=== PATIENT | female | born 1990 | race Two or more races ===

== ENCOUNTER 2024-11-09 05:53 | Day surgery (SDC) | payer OTHER ==
[2024-11-02 13:50] VITALS: BP 120/64
[~2024-11-09] VITALS: Ht 172.7 cm; Wt 77.1 kg
[2024-11-09] MEDS ORDERED: POVIDONE-IODINE 118 ML BOTT TOP ONE (10:53)
[2024-11-09] MEDS ORDERED: PROMETHAZINE HCL 50 MG/ML AMPUL IM ONE (16:00)
[2024-11-09] MEDS ORDERED: MORPHINE SULFATE 4 MG/ML VIAL IV PRN (16:00)
== END 2024-11-09 17:05 | disposition home or self-care (01) ==
LOC: CIR.AMB 05:53
PROVIDERS: ATTEND Student in an Organized Health Care Education/Training Program
DX: N93.8 Other specified abnormal uterine and vaginal bleeding (principal); D25.0 Submucous leiomyoma of uterus; N84.0 Polyp of corpus uteri

== ENCOUNTER 2024-12-15 12:15 | Inpatient (IN) | payer OTHER ==
[~2024-12-15] VITALS: Ht 172.7 cm; Wt 80.3 kg
[2024-12-19 13:53] VITALS: BP 108/57; BP 137/65
[2024-12-21] MEDS ORDERED: CEFAZOLIN SODIUM 1,000 MG VIAL ONE (06:53)
[2024-12-21] MEDS ORDERED: BUPIVACAINE HCL/MPF 0.5% 30ML VIAL ONE (06:53)
[2024-12-21] MEDS ORDERED: POVIDONE-IODINE 118 ML BOTT TOP ONE (06:53)
[2024-12-21] MEDS ORDERED: LIDOCAINE HCL 1%/EPINEPHRINE 20ML VIAL IJ ONE (06:53)
[2024-12-21] MEDS ORDERED: METRONIDAZOLE/SODIUM CHLORIDE 500 MG/100 ML PIGGYBACK IV ONE (06:54)
[2024-12-21] MEDS ORDERED: VASOPRESSIN 20 UNITS/ML VIAL ONE (06:54)
[2024-12-21] MEDS ORDERED: TRANEXAMIC ACID 100MG/1ML (1000MG) AMPUL ONE (07:00)
[2024-12-21] MEDS ORDERED: THROMBIN,HU/FIBRINOGEN/CALCIUM 10 ML SYRINGE TOP ONE (10:20)
[2024-12-21] MEDS ORDERED: VISTASEAL DUAL APPICATOR 1 EACH APPL TOP ONE (10:20)
[2024-12-21] MEDS ORDERED: SUGAMMADEX SODIUM 200 MG/2 ML VIAL IV ONE (11:18)
[2024-12-21] MEDS ORDERED: MORPHINE SULFATE 4 MG/ML VIAL IV ONE ×2 (12:05→12:35)
[2024-12-21] MEDS ORDERED: RINGERS SOLUTION,LACTATED 1,000 ML IV SCH (16:15)
[2024-12-21] MEDS ORDERED: ACETAMINOPHEN 500 MG GEL..CAP PO SCH (16:17)
[2024-12-21] MEDS ORDERED: ONDANSETRON HCL 2 MG/ML VIAL IV PRN (16:30)
[2024-12-21] MEDS ORDERED: ACETAMINOPHEN 500 MG GEL..CAP PO ONE (16:34)
[2024-12-21] MEDS ORDERED: GABAPENTIN 300 MG CAPSULE PO ONE (16:35)
[2024-12-21] MEDS ORDERED: KETOROLAC TROMETHAMINE 30 MG VIAL ONE (16:35)
[2024-12-21] MEDS ORDERED: GABAPENTIN 300 MG CAPSULE PO SCH (17:00)
[2024-12-21 17:15] VITALS: BP 137/65
[2024-12-21] MEDS ORDERED: KETOROLAC TROMETHAMINE 30 MG VIAL IV SCH (18:00)
[2024-12-22 01:18] VITALS: BP 112/61
[2024-12-22 06:30] LABS: BASO % 0.2 % (0.1-1.2); EOS # 0.03 (0.04-0.54); EOS % 0.5 % (0.7-7.0); LYMPH # 1.76 (1.18-3.74); LYMPH % 29.4 % (19.3-53.1); MEAN PLATELET VOLUME 10.70 fl (9.4-12.4); MONO # 0.72 (0.24-0.82); MONO % 12.0 % (4.7-12.5); NEUT # 3.46 (1.56-6.13); NEUT % 57.7 % (34.0-71.1); RED CELL DISTRIBUTION WIDTH 12.7 % (11.6-14.4)
[2024-12-22 08:20] VITALS: BP 103/60
== END 2024-12-22 10:34 | disposition home or self-care (01) | DRG 743 ==
LOC: O/R 12-21 06:00 → SURG 12-21 10:00 → OB/GYN 12-21 16:57
PROVIDERS: ADMIT Student in an Organized Health Care Education/Training Program; ATTEND Student in an Organized Health Care Education/Training Program
PROC: 0UDB8ZZ Extraction of Endometrium, Via Natural or Artificial Opening Endoscopic (ICD-10-PCS; 2024-12-21)
PROC: 0UBC4ZZ Excision of Cervix, Percutaneous Endoscopic Approach (ICD-10-PCS; 2024-12-21)
PROC: 0UB44ZZ Excision of Uterine Supporting Structure, Percutaneous Endoscopic Approach (ICD-10-PCS; 2024-12-21)
PROC: 0UBF4ZZ Excision of Cul-de-sac, Percutaneous Endoscopic Approach (ICD-10-PCS; 2024-12-21)
PROC: 0WBH4ZZ Excision of Retroperitoneum, Percutaneous Endoscopic Approach (ICD-10-PCS; 2024-12-21)
PROC: 0DBP4ZZ Excision of Rectum, Percutaneous Endoscopic Approach (ICD-10-PCS; 2024-12-21)
PROC: 8E0W4CZ Robotic Assisted Procedure of Trunk Region, Percutaneous Endoscopic Approach (ICD-10-PCS; 2024-12-21)
PROC: 3E1P88Z Irrigation of Female Reproductive using Irrigating Substance, Via Natural or Artificial Opening Endoscopic (ICD-10-PCS; 2024-12-21)
PROC: 0UB94ZZ Excision of Uterus, Percutaneous Endoscopic Approach (ICD-10-PCS; principal; 2024-12-21 10:00)
DX: D25.9 Leiomyoma of uterus, unspecified (principal); N80.353 Endometriosis of bilateral pelvic sidewall, unspecified depth; N80.42 Endometriosis of rectovaginal septum with involvement of vagina; N80.3C2 Endometriosis of the left uterosacral ligament, unspecified depth; N80.329 Endometriosis of the posterior cul-de-sac, unspecified depth; N80.00 Endometriosis of the uterus, unspecified; N80.519 Endometriosis of the rectum, unspecified depth
CPT/HCPCS: 58546; 58662; 45171; 49320; 58350; S2900